=== PATIENT | male | born 1995 | race Caucasian/White ===

== ENCOUNTER 2017-01-12 04:36 | Emergency (ER) | payer SELFPAY ==
[2017-01-12 07:24] LABS: HEMOGLOBIN 14.2 gm/dl (14.0-17.5); RED BLOOD COUNT 4.62 M/UL (4.20-5.50); WHITE BLOOD COUNT 5.7 K/UL (4.5-11.0)
[2017-01-12 07:45] LABS: BUN/CREATININE RATIO 11 (0-10)
== END 2017-01-12 09:10 | disposition home or self-care (01) ==
LOC: ER1 04:36
PROVIDERS: Specialist/Technologist Athletic Trainer
DX: L03.211 Cellulitis of face (principal); Z88.1 Allergy status to other antibiotic agents; Z88.8 Allergy status to other drugs, medicaments and biological substances
CPT/HCPCS: 36415; 80053; 85025; 96361; 96365; 99283; J0875

== ENCOUNTER 2017-01-21 00:27 | Emergency (ER) | payer SELFPAY ==
[2017-01-21 02:02] LABS: HEMOGLOBIN 14.6 gm/dl (14.0-17.5); RED BLOOD COUNT 4.83 M/UL (4.20-5.50); WHITE BLOOD COUNT 15.9 K/UL (4.5-11.0)
[2017-01-21 02:17] LABS: BUN/CREATININE RATIO 11 (0-10)
== END 2017-01-21 05:50 | disposition home or self-care (01) ==
LOC: ER1 00:27
PROVIDERS: Family Medicine
DX: R21 Rash and other nonspecific skin eruption (principal); R50.9 Fever, unspecified; R05 Cough; Z91.041 Radiographic dye allergy status; Z88.8 Allergy status to other drugs, medicaments and biological substances; Z88.1 Allergy status to other antibiotic agents
CPT/HCPCS: 36415; 71020; 80053; 81001; 85025; 86140; 87040; 87081; 87496; 87880; 96360; 99283; J7030